=== PATIENT | male | born 1965 | race Caucasian/White ===

== ENCOUNTER 2020-02-13 12:31 | Emergency (ER) | payer OTHER ==
[~2020-02-13] VITALS: Ht 175.3 cm; Wt 86.2 kg
[2020-02-13 12:34] VITALS: BP 132/88
--- NOTE | 2020-02-13 12:40 | NUR ---
54 YEAR OLD MALE COMPLAINS OF BEING TIRED BECAUSE HE WALKED VERY FAR DISTANCE. PT STATES HE DOESNT FEEL TOO GOOD, BUT WANTS A PLACE TO EAT/REST. PT ADMITS TO SOME DRUG USE OF METH. PT AOX4, BREATHING EVEN AND UNLABORED, SKIN WARM AND DRY. BED IN LOWEST POSITION, LOCKED, BED RAIL UPX1 PMH - DENIES ALLERGIES - NKA
--- NOTE | 2020-02-13 12:41 | NUR ---
PATIENT AMBULATED TO BED 7.
--- NOTE | 2020-02-13 13:15 | NUR ---
Patient given written and verbal discharge instructions and verbalizes understanding. Given copies of tests performed during visit. Patient is awake, alert and oriented. Ambulatory with steady gait. Refuses offer of prison placement. Given list of available shelters in surrounding areas. Patient given sandwitch, clothes appropriate for weather.
[2020-02-13 13:18] VITALS: BP 132/88
== END 2020-02-13 13:15 | disposition home or self-care (01) ==
LOC: MED 12:31
DX: F15.10 Other stimulant abuse, uncomplicated (principal); T73.0XXA Starvation, initial encounter; X58.XXXA Exposure to other specified factors, initial encounter; F17.210 Nicotine dependence, cigarettes, uncomplicated; Z59.0 Homelessness
CPT/HCPCS: 99281; 99282